=== PATIENT | female | born 1995 | race Caucasian/White ===

== ENCOUNTER 2019-10-25 04:56 | Inpatient (IN) ==
[~2019-10-25 04:56] MED LIST: Famotidine 20 MG/2 ML VIAL IVP PRN; Metoclopramide 10 MG/2 ML VIAL IVP PRN; Naloxone 0.4 MG/ML INJ IVP PRN; Ondansetron 4 MG/2 ML VIAL IVP PRN
[2019-10-25] MEDS ORDERED: Ringers Solution, Lactated 1,000 ML IVC SCH (05:00)
[2019-10-25] MEDS ORDERED: *HR* FentaNYL (PF) 100 MCG/2 ML VIAL EP ONE (05:18)
[2019-10-25] MEDS ORDERED: EPHEDrine 50 MG/ML VIAL IVP PRN (05:18)
[2019-10-25] MEDS ORDERED: Bupivacaine-MPF 0.25% 10 ML VIAL EP ONE (05:18)
[2019-10-25] MEDS ORDERED: Epidural Premix (fent/bupiv) 110 ML EP ONE (05:25)
[2019-10-25] MEDS ORDERED: Epidural Premix (fent/bupiv) 110 ML EP SCH (05:30)
[2019-10-25 05:52] LABS: Amphetamine Screen,Urine Negative ng/mL (Cutoff=1000); Barbiturate Screen,Urine Negative ng/mL (Cutoff=200); Benzodiazepines Screen,Urine Negative ng/mL (Cutoff=200); Cannabinoid Screen,Urine Negative ng/mL (Cutoff = 50); Cocaine Screen,Urine Positive ng/mL (Cutoff= 300); Opiate Screen,Urine Negative ng/mL (Cutoff=300); Phencyclidine Screen,Urine Negative ng/mL (Cutoff=25)
[2019-10-25] MEDS ORDERED: Oxytocin 20 units/ LR 1000 mL 20 UNIT/1,000 ML BAG IVC ONE ×3 (05:53→11:47)
[2019-10-25 06:07] LABS: Basophils % 0.1 %; Eosinophils % 0.6 %; Hematocrit 32.6 % (35.3-44.9); Hemoglobin 10.4 g/dL (11.5-15.4); Immature Granulocytes % 0.7 % (0-4); Lymphocytes # 1.3 K/mcL (0.6-4.6); Lymphocytes % 17.5 %; Mean Corpuscular HGB Conc 31.9 g/dL (31.6-35.5); Mean Corpuscular Hemoglobin 29.1 pg (28.0-33.3); Mean Corpuscular Volume 91.3 fL (83.0-100.0); Mean Platelet Volume 11.2 fL (9.4-12.4); Monocytes # 0.4 K/mcL (0.0-1.3); Monocytes % 5.7 %; Neutrophils # 5.5 K/mcL (1.6-8.9); Platelet Count 140 K/mcL (140-400); Red Blood Count 3.57 M/mcL (3.82-4.97); Red Cell Distribution Width 13.2 % (11.5-14.5); Segmented Neutrophils % 75.4 %; White Blood Count 7.2 K/mcL (4.3-11.1)
[2019-10-25 06:12] LABS: INR 0.9; Prothrombin Time 10.7 Seconds (9.4-12.1)
[2019-10-25 06:14] LABS: Activated Partial Thrombo Time 28.9 Seconds (26.0-36.0)
[2019-10-25 06:28] LABS: Alanine Aminotransferase 7 Units/L (7-52); Aspartate Amino Transferase 13 Units/L (13-39); BUN/Creatinine Ratio 22 (6-26); Blood Urea Nitrogen 7 mg/dL (6-20); Lactate Dehydrogenase 136 Units/L (140-271); eGFR For African Americans > 60 (> 60); eGFR For Non-African Americans > 60 (> 60)
[2019-10-25] MEDS ORDERED: Benzocaine/Menthol 56 GM AEROSOL SPRAY TP PRN (11:47)
[2019-10-25] MEDS ORDERED: Oxytocin 20 units/ LR 1000 mL 20 UNIT/1,000 ML BAG IVC SCH (11:47)
[2019-10-25] MEDS ORDERED: Lanolin 7 G OINT...G. TP PRN (11:47)
[2019-10-25] MEDS: Ibuprofen 600 MG TABLET PO PRN ×2 (12:04→18:27)
[2019-10-25] MEDS: Acetaminophen 325 MG TABLET PO PRN ×2 (16:34→22:34)
[2019-10-26] MEDS: Ibuprofen 600 MG TABLET PO PRN ×4 (00:32→20:51)
[2019-10-26] MEDS: Acetaminophen 325 MG TABLET PO PRN (05:20)
[2019-10-26] MEDS: Prenatal Vit/FA 1 EACH TABLET PO SCH (08:02)
[2019-10-26 08:57] LABS: Basophils % 0.1 %; Hemoglobin 9.1 g/dL (11.5-15.4); Immature Granulocytes % 0.7 % (0-4)
[2019-10-26 08:59] LABS: Eosinophils % 0.6 %; Hematocrit 28.5 % (35.3-44.9); Immature Platelets 7.5 % (1.1-6.1); Lymphocytes # 1.6 K/mcL (0.6-4.6); Lymphocytes % 22.6 %; Mean Corpuscular HGB Conc 31.9 g/dL (31.6-35.5); Mean Corpuscular Hemoglobin 30.2 pg (28.0-33.3); Mean Corpuscular Volume 94.7 fL (83.0-100.0); Mean Platelet Volume 11.2 fL (9.4-12.4); Monocytes # 0.4 K/mcL (0.0-1.3); Monocytes % 5.7 %; Platelet Count 140 K/mcL (140-400); Red Blood Count 3.01 M/mcL (3.82-4.97); Red Cell Distribution Width 13.5 % (11.5-14.5); Segmented Neutrophils % 70.3 %; White Blood Count 7.2 K/mcL (4.3-11.1)
[2019-10-26 09:01] LABS: Neutrophils # 5.1 K/mcL (1.6-8.9)
[2019-10-27 08:04] VITALS: BP 129/70
[2019-10-27] MEDS ORDERED: Etonogestrel 68 MG IMPLANT IL ONE (08:24)
[2019-10-27] MEDS ORDERED: Lidocaine/EPI 1:100k 2% 20 ML VIAL INFILT ONE (08:25)
[2019-10-27] MEDS: Prenatal Vit/FA 1 EACH TABLET PO SCH (09:46)
== END 2019-10-27 10:52 | disposition home or self-care (01) | DRG 560 ==
LOC: 1NENULAB → 1NENUOBS 11:45
PROVIDERS: ADMIT Advanced Practice Midwife; ATTEND Advanced Practice Midwife